=== PATIENT | male | born 1975 | race Caucasian/White ===

== ENCOUNTER 2016-09-28 21:27 | Inpatient (IN) | payer OTHER ==
[~2016-09-28] VITALS: Ht 170.2 cm; Wt 120.3 kg
[2016-09-28 22:52] LABS: METHADONE URINE NEGATIVE (NEGATIVE)
[2016-09-28 22:56] LABS: MEAN CORPUSCULAR HEMOGLOBIN 30.6 pg (27.0-33.0); MEAN CORPUSCULAR HGB CONC 34.8 g/dl (32.0-36.5); MEAN CORPUSCULAR VOLUME 87.9 fl (80.0-96.0); RED CELL DISTRIBUTION WIDTH 13.8 % (11.5-14.5); WHITE BLOOD COUNT 10.7 K/mm3 (4.0-10.0)
[2016-09-28 23:01] LABS: ALBUMIN 4.6 GM/DL (3.2-5.2); ALBUMIN/GLOBULIN RATIO 1.28 (1.00-1.93); ALKALINE PHOSPHATASE 79 U/L (45-117); ALT/SGPT 145 U/L (12-78); ANION GAP 12 MEQ/L (8-16); AST/SGOT 70 U/L (15-37); BILIRUBIN,DIRECT < 0.1 MG/DL (0.0-0.2); BILIRUBIN,TOTAL 0.6 MG/DL (0.2-1.0); BLOOD UREA NITROGEN 9 MG/DL (7-18); CALCIUM LEVEL 9.2 MG/DL (8.5-10.1); CARBON DIOXIDE LEVEL 27 MEQ/L (21-32); CHLORIDE LEVEL 102 MEQ/L (98-107); CREATININE FOR GFR 1.07 MG/DL (0.70-1.30); GLOMERULAR FILTRATION RATE > 60.0 (>60); GLUCOSE, FASTING 87 MG/DL (70-105); POTASSIUM SERUM 4.2 MEQ/L (3.5-5.1); SODIUM LEVEL 141 MEQ/L (136-145); TOTAL PROTEIN 8.2 GM/DL (6.4-8.2)
[2016-09-29] MEDS ORDERED: OXAZEPAM 15 MG CAP PO ONE (08:15)
[2016-09-29] MEDS ORDERED: amLODIPine 5 MG TAB PO ONE (09:45)
[2016-09-29 19:17] VITALS: BP 165/105
[2016-09-29] MEDS ORDERED: ACETAMINOPHEN TAB 650MG DOSE (2X325MG) PO PRN (19:45)
[2016-09-29] MEDS ORDERED: MOM 30ML SUSPENSION UDC PO PRN (19:45)
[2016-09-29] MEDS ORDERED: traZODone 50 MG TAB PO PRN (19:45)
[2016-09-29] MEDS ORDERED: MAALOX 30 ML SUSP *UDC PO PRN (19:45)
[2016-09-29] MEDS ORDERED: OXAZEPAM 15 MG CAP PO SCH (19:45)
[2016-09-29] MEDS: THIAMINE 100 MG TAB PO SCH (20:56)
[2016-09-29] MEDS: OXAZEPAM 15 MG CAP PO SCH (20:57)
[2016-09-29 21:19] VITALS: BP 146/86
[2016-09-30 06:00] VITALS: BP 150/91
[2016-09-30] MEDS: MULTIVITAMINS/MINERALS THERAP 1 TAB PO SCH (08:18)
[2016-09-30] MEDS: OXAZEPAM 15 MG CAP PO SCH ×2 (08:18→20:40)
[2016-09-30] MEDS: THIAMINE 100 MG TAB PO SCH ×2 (08:18→20:40)
[2016-09-30] MEDS: FOLIC ACID 1 MG TAB PO SCH (08:18)
[2016-09-30 08:40] VITALS: BP 154/104
[2016-09-30] MEDS ORDERED: LISI10TA4 PO (09:06)
[2016-09-30] MEDS ORDERED: VERA240T6 PO (09:17)
--- NOTE | 2016-09-30 11:08 | HPEPDOC ---
Medical History and Physical Date of Admission Sep 29, 2016 at 14:42 History and Physical PCP: [facility] ATTENDING: Dr. John Joyce HPI: 41yoM admitted to [facility] for other specified depressive disorder, being medically examined today. No acute medical complaints today. Denies any fevers, chills, weakness, fatigue, GUERIN, CP, SOB, cough, palpitations, abdominal pain, N/V /D or changes in bowel or bladder habits. PMHx: Hypertension. Has not been compliant with medication for the past 4 months. Patient states was too expensive. KENZIE. CPAP Chronic low back pain/degenerative disc disease Chronic left knee pain Chronic pain PSHX: Right shoulder surgery-cyst removed SOCHX: Resides in: [facility] Marital Status: Kids: 2 Employment: [employer] 12 years. 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 Tobacco use: Patient states quit smoking 2 months ago. Currently 1 can of chewing tobacco per day ETOH: 6-8 drinks 4 times per week Illicit Drugs: Denies IV Drug Use: Denies Tattoos done unprofessionally: Denies FAMHX: Mother: Alive, depression Father: Alive, diabetes, bipolar disorder Siblings: One sister Alive, bipolar disorder Children: Alive, well Unexpected deaths due to medical reasons: None. ROS: As noted in HPI, otherwise 11pt ROS of systems reviewed and unremarkable. PE: GEN: 41yoM, appears stated age. Well-nourished, well developed. No acute distress. Alert and oriented x 3. Pleasant, interactive. HEENT: Normocephalic, atraumatic. Pupils are equal, round, and reactive to light. Extraocular movements are intact. No nystagmus appreciated. Sclera are nonicteric. Conjunctiva without injection. Nose midline. Nasal turbinates without bogginess. EACs both patent BL. TMs both visualized and steiner with good cone of light, no bulging or erythema. No facial asymmetry. Moist mucous membranes. Dentition fair. Pharynx pink and moist, no cobblestoning. Neck supple , trachea midline. No lymphadenopathy or thyromegaly appreciated. CHEST: Regular rate and rhythm, +S1, +S2 LUNGS: Clear to auscultation bilaterally. No wheezes, rales, or rhonchi. Breathing appears symmetric and easy. Patient is speaking in full sentences. No accessory muscle use. ABD: Round, soft, non-tender, non-distended. +Bowel sounds throughout. No rebound or guarding. No costovertebral angle tenderness. EXT: Pulses 2+ bilaterally dorsalis pedis and radial. No lower extremity edema appreciated. SKIN: [place], dry, warm. Capillary refill <2sec. No rashes. NEURO: Alert and oriented x 3. Cranial nerves III-XII are intact. No focal deficits appreciated. EKG: pending. A&P: 41yoM admitted to [facility] for other specified depressive disorder 1. Psych. Plan per Psychiatry. Obtain baseline EKG to assure the safety of psychiatric medications as they can prolong the QT interval. 2. Nicotine dependence. Patch available. 3. Hypertension. Restart lisinopril 10 mg daily with hold parameters. Monitor blood pressure. 4. Follow up with PCP on discharge. 5. Substance use. Per psychiatry. Continue with MVI, Thiamine, and Folic Acid supplementation. 6. Chronic low back pain, chronic right knee pain, chronic pain. Patient states his pain is controlled. He states he does not feel he needs any further interventions at this time. Outpatient follow-up. Continue Tylenol as needed. 7. KENZIE. CPAP with home settings. 8. Elevated LFT. Recheck CMP. Safety aid Rafita present throughout examination Vital Signs Vital Signs Label Value Date Time Patient Temperature 98.7 degrees F 09/30/16 0600 Pulse 71 09/30/16 0600 Respiratory Rate 16 bpm 09/30/16 0600 Blood Pressure Assessment 150/91 (110) 09/30/16 0600 Bedside Pulse Oximetry 99 % 09/29/16 1917 Item Value Date Time Oxygen Delivery Method Room Air 09/29/16 1817 Laboratory Data Labs 24H Item Value Date Time White Blood Count 10.7 K/mm3 H 09/28/160 Red Blood Count 5.82 M/mm3 09/28/162219 Hemoglobin 17.8 g/dl 09/28/16 2220 Hematocrit 51.2 % 09/28/160 Mean Corpuscular Volume 87.9 fl 09/28/162219 Mean Corpuscular Hemoglobin 30.6 pg 09/28/162219 Mean Corpuscular Hemoglobin Concent 34.8 g/dl 09/28/16 222 Red Cell Distribution Width 13.8 % 09/28/16 2220 Platelet Count 234 k/mm3 09/28/16 2220 Sodium Level 141 MEQ/L 09/28/16 2220 Potassium Level 4.2 MEQ/L 09/28/16 2220 Chloride Level 102 MEQ/L 09/28/16 2220 Carbon Dioxide Level 27 MEQ/L 09/28/16 2220 Anion Gap 12 MEQ/L 09/28/16 2220 Blood Urea Nitrogen 9 MG/DL 09/28/16 2220 Creatinine 1.07 MG/DL 09/28/16 2220 Glomerular Filtration Rate > 60.0 09/28/16 2220 Fasting Glucose 87 MG/DL 09/28/16 2220 Calcium Level 9.2 MG/DL 09/28/16 2220 Total Bilirubin 0.6 MG/DL 09/28/16 2220 Direct Bilirubin < 0.1 MG/DL 09/28/16 2220 Aspartate Amino Transf (AST/SGOT) 70 U/L H 09/28/16 2220 Alanine Aminotransferase (ALT/SGPT) 145 U/L H 09/28/16 2220 Alkaline Phosphatase 79 U/L 09/28/16 2220 Total Protein 8.2 GM/DL 09/28/16 2220 Albumin 4.6 GM/DL 09/28/16 2220 Albumin/Globulin Ratio 1.28 09/28/16 2220 Thyroid Stimulating Hormone (TSH) 1.450 uIU/ML 09/28/16 2220 Salicylates Level < 1.7 MG/DL L 09/28/160 Urine Opiates Screen NEGATIVE 09/28/16 2220 Urine Methadone Screen NEGATIVE 09/28/16 2220 Acetaminophen Level < 2.0 UG/ML L 09/28/162219 Urine Barbiturates Screen NEGATIVE 09/28/16 2220 Urine Phencyclidine Screen NEGATIVE 09/28/160 Urine Amphetamines Screen NEGATIVE 09/28/16 2220 Urine Benzodiazepines Screen NEGATIVE 09/28/160 Urine Cocaine Metabolite Screen NEGATIVE 09/28/162219 Urine Cannabinoids Screen NEGATIVE 09/28/160 Ethyl Alcohol Level 0.165 % H 09/28/160 Home Medications Scheduled Lisinopril (Lisinopril) 10 Mg Tab 10 MG PO DAILY for blood pressure Verapamil HCl (Verapamil HCl SA) 240 Mg Tab 120 MG PO DAILY . Allergies Coded Allergies: Acetaminophen (Verified Allergy, Unknown, Rash, 09/29/16) Maryann Dasilva Sep 30, 2016 11:08
[2016-09-30] MEDS: LISINOPRIL 10 MG TAB PO SCH (11:45)
[2016-09-30 12:12] VITALS: BP 143/80
--- NOTE | 2016-09-30 12:17 | MHHPE ---
DATE OF ADMISSION: 09/29/2016 This is a 41-year-old male who was brought to the emergency room by the police following an argument he was having with his ex-fiancee where he stated he that he might as well kill himself. His ex-fiancee and he were arguing over their text messaging. She has decided to break up with him after an and off two year relationship. In addition, his ex- who he legally in April is moving from [place] with his children to [place]. Additionally, he has his mid term exams for a business degree at [employer]. His ex-fiancee stated to him that she was a free spirit and wants to do what she wants to do. She is 36 years old. When she is not with him, she goes out and parties and he wants her at home. She lives in [place], [place] miles away. His ex- last month stated that she was moving away. Due to these stressors, the patient had texted his ex-fiancee that he "might as well slit his throat". The patient is a drinker. He drinks approximately 8 beers, according to him, four times a week. When his ex-fiancee called the police, he went with them to the emergency room. 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 ALCOHOL HISTORY: He has drank since he was 18 years old. Mental health or alcohol treatment is negative. He has never attempted to hurt himself. MARITAL HISTORY: He was for 10 years, although they were and last April they legally . He has two children by that marriage, ages 8 and 10, and his ex- has full custody. LEGAL HISTORY: Otherwise is negative. EDUCATIONAL HISTORY: He has a high school degree and is hoping to go on to [place] for a four year degree after his business degree at [employer]. FAMILY HISTORY: Positive for a mother with depression. Father has been diagnosed as bipolar. They both live in [place]. He has a sister who is who has bipolar disorder and lives in [place]. NEUROLOGICAL HISTORY: Negative. MEDICAL HISTORY: Positive for high blood pressure, lower back pain, sleep apnea. He has the pain in his shoulders and knees and is 80% disabled. HISTORY: He has been both in the [employer] and the [place]. 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 He had four friends in the who all committed suicide. The patient states, "I should stop drinking". He states in addition to his two exes as previously mentioned, his mid terms and his children moving away are all stressors on him. Sleep difficulties are denied. He has no appetite difficulties. MENTAL STATUS EXAMINATION: He denies hallucinations, delusions, obsessions, compulsions, and phobias. His appearance is appropriate. His eye contact is good. His speech is of normal volume and articulation. His mood is a 7 out of 10. His affect is neutral and pleasant. Remote, recent and immediate memory are intact. He is fully oriented in three spheres. He has no appearance of a thought disorder of any sort. He is denying suicidal or homicidal ideation at this time. Judgment is fair. DIAGNOSES: 1. Adjustment disorder with depressed mood. 2. Alcohol use.
[2016-09-30 13:25] LABS: MEAN CORPUSCULAR HEMOGLOBIN 30.9 pg (27.0-33.0); MEAN CORPUSCULAR HGB CONC 35.3 g/dl (32.0-36.5); MEAN CORPUSCULAR VOLUME 87.5 fl (80.0-96.0); RED CELL DISTRIBUTION WIDTH 13.5 % (11.5-14.5); WHITE BLOOD COUNT 7.5 K/mm3 (4.0-10.0)
[2016-09-30 13:35] LABS: ALBUMIN/GLOBULIN RATIO 1.21 (1.00-1.93); ALKALINE PHOSPHATASE 78 U/L (45-117); ALT/SGPT 105 U/L (12-78); ANION GAP 11 MEQ/L (8-16); AST/SGOT 41 U/L (15-37); BILIRUBIN,TOTAL 0.6 MG/DL (0.2-1.0); BLOOD UREA NITROGEN 15 MG/DL (7-18); CALCIUM LEVEL 9.2 MG/DL (8.5-10.1); CARBON DIOXIDE LEVEL 25 MEQ/L (21-32); CHLORIDE LEVEL 103 MEQ/L (98-107); CREATININE FOR GFR 1.12 MG/DL (0.70-1.30); GLOMERULAR FILTRATION RATE > 60.0 (>60); GLUCOSE, FASTING 120 MG/DL (70-105); POTASSIUM SERUM 4.4 MEQ/L (3.5-5.1); SODIUM LEVEL 139 MEQ/L (136-145); TOTAL PROTEIN 7.3 GM/DL (6.4-8.2)
[2016-09-30 18:00] VITALS: BP 125/63
--- NOTE | 2016-09-30 22:40 | ECGEPIP ---
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
[2016-10-01 06:22] VITALS: BP 149/82
[2016-10-01 07:25] LABS: ALBUMIN 3.8 GM/DL (3.2-5.2); ALBUMIN/GLOBULIN RATIO 1.23 (1.00-1.93); ALKALINE PHOSPHATASE 70 U/L (45-117); ALT/SGPT 98 U/L (12-78); ANION GAP 11 MEQ/L (8-16); AST/SGOT 42 U/L (15-37); BILIRUBIN,TOTAL 0.7 MG/DL (0.2-1.0); BLOOD UREA NITROGEN 16 MG/DL (7-18); CALCIUM LEVEL 8.8 MG/DL (8.5-10.1); CARBON DIOXIDE LEVEL 24 MEQ/L (21-32); CHLORIDE LEVEL 106 MEQ/L (98-107); CREATININE FOR GFR 1.12 MG/DL (0.70-1.30); GLOMERULAR FILTRATION RATE > 60.0 (>60); GLUCOSE, FASTING 95 MG/DL (70-105); POTASSIUM SERUM 4.7 MEQ/L (3.5-5.1); SODIUM LEVEL 141 MEQ/L (136-145); TOTAL PROTEIN 6.9 GM/DL (6.4-8.2)
[2016-10-01] MEDS: MULTIVITAMINS/MINERALS THERAP 1 TAB PO SCH (08:36)
[2016-10-01] MEDS: THIAMINE 100 MG TAB PO SCH (08:36)
[2016-10-01] MEDS: OXAZEPAM 15 MG CAP PO SCH (08:36)
[2016-10-01] MEDS: FOLIC ACID 1 MG TAB PO SCH (08:36)
[2016-10-01 08:37] VITALS: BP 132/71
[2016-10-01] MEDS: LISINOPRIL 10 MG TAB PO SCH (08:37)
[2016-10-01] MEDS ORDERED: INFLUENZA QUADRIVALENT PF VACCINE 0.5ML SYRINGE/VIAL (90686) IM ONE (09:00)
[2016-10-01] MEDS ORDERED: ZEST1TAB6 PO (09:05)
[2016-10-01] MEDS ORDERED: LISI10TA4 PO (09:12)
[2016-10-01 12:00] VITALS: BP 148/75
--- NOTE | 2016-10-01 20:08 | DSES ---
DATE OF ADMISSION: 09/29/2016 DATE OF DISCHARGE: 10/01/2016 41-year-old male who was brought to the emergency room by the police following an argument he was having with his ex-fiance where he stated he might as well kill himself. His exam-fiance and he were arguing over their text messages. She has decided to break up with him after an on and off two year relationship. In addition, his ex- who he legally in April is moving from [place] with his children to [place]. Additionally he has his midterm exams for business degree at [employer]. His ex-fiance stated to him that she was a free spirit and wants to do what she wants to do. She is 36 years old. When she is not with him according to him she goes out and parties and he wants her at home. She lives in [facility] [place] from [facility]. His ex- last month stated she was moving away due to the stressors. The patient texted his fiance that he might as well slit his throat. The patient is a drinker, he drinks approximately 8 beers according to him, four times a week. When his exam-fiance called the police he went with them to the emergency room. 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 ALCOHOL HISTORY: He drank since he was 18 years old. He has had no mental health or alcohol treatment. He is never in the past attempted to hurt himself. MARITAL HISTORY: He was for 10 years, although they were and last April they were legally . He has two children by that marriage, age 8 and 10 and his ex- has full custody for some reason. LEGAL HISTORY: Otherwise is negative. EDUCATIONAL HISTORY: He has a high school degree and is hoping to go onto [place] for a four year degree after his business degree at [employer]. FAMILY HISTORY: Positive for mother with depression. Father has been diagnosed as bipolar. They both live in [place]. He has a sister who is , who is bipolar and lives in [place]. NEUROLOGICAL HISTORY: Negative. MEDICAL HISTORY: Positive for high blood pressure, lower back pain, sleep apnea. He has pain in his shoulders and knees and is 80% disabled. HISTORY: He has been in both the [employer] and [employer]. 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 He had four friends in the who all committed suicide. The patient states "I should stop drinking." He states in addition to his two exes, as previously mentioned, his midterms and his children moving away are all stressors on him. Sleep difficulties are denied. He has no appetite difficulties. MENTAL STATUS EXAMINATION: On admission he denied hallucinations, delusions, obsessions, compulsions and phobias. Appearance appropriate. His eye contact was good. His speech had normal volume and articulate. His mood is a 7 out of 10. His affect is neutral and pleasant. Remote, recent and immediate memory are intact. He is fully oriented in three spheres. He has no appearance of a though disorder of any sort. He is denying suicidal or homicidal ideation at this time. DIAGNOSES: 1. Adjustment disorder with depressed mood. 2. Alcohol abuse. LABORATORY DATA: His CBC on 09/28 and 09/30 were unremarkable. Serum chemistries showed an increased AST of 41 and ALT of 105. Fasting glucose was mildly elevated at 120. Toxicology screen was positive for alcohol 0.165. COURSE ON THE UNIT: Due to patient being associated with veterans administration decision to either transfer him to [facility] or discharge home was made. No change in mental status.
== END 2016-10-01 13:40 | disposition home or self-care (01) | DRG 881 ==
LOC: M ED 22:19 → M ED INP 09-29 14:42 → M PSY 09-29 18:38
PROVIDERS: ADMIT Psychiatry & Neurology Psychiatry; ATTEND Psychiatry & Neurology Child & Adolescent Psychiatry
DX: F43.21 Adjustment disorder with depressed mood (principal); M54.5 Low back pain; G47.33 Obstructive sleep apnea (adult) (pediatric); I10 Essential (primary) hypertension; M25.562 Pain in left knee; F17.220 Nicotine dependence, chewing tobacco, uncomplicated; F10.10 Alcohol abuse, uncomplicated; Z79.899 Other long term (current) drug therapy; Z88.6 Allergy status to analgesic agent; Z91.14 Patient's other noncompliance with medication regimen; Z81.8 Family history of other mental and behavioral disorders; Z91.82 Personal history of military deployment